=== PATIENT | female | born 1985 | race Caucasian/White ===

== ENCOUNTER 2018-01-04 17:32 | Emergency (ER) | payer OTHER ==
[2018-01-04 17:42] VITALS: BP 130/72
--- NOTE | 2018-01-04 17:47 | UC ---
Hand/Wrist HPI - HPI Summary HPI Summary: 32 yo WF presents with injury to left middle finger 1 month ago. She tells me that she was cooking and accidentally turned on the mixer switch with her hand in the bowl - her left middle finger was twisted. Since that time it has improved significantly, but is still painful on the radial aspect of the DIP and with valgus/varus force. She has been keeping her finger in a splint daily with no relief. - History Of Current Complaint Chief Complaint: UCUpperExtremity Stated Complaint: FINGER INJURY Hx Obtained From: Patient Hx Last Menstrual Period: 4 yrs Severity Initially: Mild Severity Currently: Mild Pain Intensity: 2 Pain Scale Used: 0-10 Numeric Character Of Pain: Throbbing Aggravating Factor(s): Movement, Abduction, Adduction Alleviating Factor(s): Nothing - Allergies/Home Medications Allergies/Adverse Reactions: Allergies Allergy/AdvReac Type Severity Reaction Status Date / Time No Known Allergies Allergy Verified 01/04/18 17:42 Home Medications: Home Medications BuPROPion XL* [Bupropion XL*] 300 mg PO DAILY 01/04/18 [History Confirmed ] Dextroamphetamine/Amphetamine [Amphetamine/Dextroampheta 5 mg] 3 tab PO DAILY [History Confirmed 01/04/18] Fluticas/Salmet 230/21 HFA(NF) [Advair HFA 23O/21 (NF)] 1 puff INH BID 01/04/18 [History Confirmed 01/04/18] PMH/Surg Hx/FS Hx/Imm Hx Previously Healthy: Yes Respiratory History: Asthma Psychological History: Anxiety, Depression - Surgical History Surgical History: Yes Surgery Procedure, Year, and Place: - Family History Known Family History: Positive: Other - brother has hx of asthmatic tendencies - Social History Occupation: Employed Full-time Lives: With Family Alcohol Use: Occasionally Substance Use Type: None Smoking Status (MU): Never Smoked Tobacco Household Exposure Type: Cigarettes Review of Systems Constitutional: Negative Skin: Negative Respiratory: Negative Cardiovascular: Negative Neurovascular: Negative Musculoskeletal: Other: - Pain left middle finger Neurological: Negative Psychological: Negative All Other Systems Reviewed And Are Negative: Yes Physical Exam - Summary Physical Exam Summary: GENERAL: NAD. WDWN. No pain distress. SKIN: No rashes, sores, ulcers, masses, lesions. NECK: Supple. Nontender. No lymphadenopathy. CHEST: CTAB. No r/r/w. No accessory muscle use. Breathing comfortably and in no distress. CV: RRR. Without m/r/g. Pulses intact radial and ulnar. MSK: Mild TTP over left middle finger PIP on the radial aspect. Increased pain with varus and valgus force. FROM. Strength 5/5 including maintenance tech strength. No edema or obvious bony deformities. NEURO: Alert. Sensations intact hand and all fingers. PSYCH: Age appropriate behavior. Triage Information Reviewed: Yes Vital Signs: Initial Vital Signs Temp 98.2 F 01/04/18 17:36 Pulse 91 01/04/18 17:36 Resp 16 01/04/18 17:36 BP 130/72 01/04/18 17:36 Pulse Ox 100 01/04/18 17:36 Hand/Wrist Course/Dx - Course Course Of Treatment: XR: IMPRESSION: No fracture of the left middle finger is noted. Soft tissue swelling at the proximal interphalangeal joint. Suspect possible tendon or ligament involvement - I will refer her to Orthopedics for further evaluation. - Differential Dx/Diagnosis Provider Diagnoses: Left middle finger pain Discharge - Discharge Plan Condition: Stable Disposition: HOME Referrals: Mimi Calloway MD [Primary Care Provider] - Kell Thompson MD [Medical Doctor] - As Soon As Possible Additional Instructions: If you develop a fever, shortness of breath, chest pain, new or worsening symptoms - please call your PCP or go to the ED. 1) Please schedule a follow up appointment with Dr. Thompson at the number below regarding your continued finger pain and swelling.
--- NOTE | 2018-01-04 18:57 | RAD ---
Indication: Left middle finger pain and swelling. 3 views of left middle finger demonstrates no fracture. No other bone or joint abnormality is noted. IMPRESSION: No fracture of the left middle finger is noted. Soft tissue swelling at the proximal interphalangeal joint.
== END 2018-01-04 19:05 | disposition home or self-care (01) ==
LOC: UCEAST 17:32
DX: M79.645 Pain in left finger(s) (principal); J45.909 Unspecified asthma, uncomplicated; F41.9 Anxiety disorder, unspecified; F32.9 Major depressive disorder, single episode, unspecified
CPT/HCPCS: 73140; 99211; G0463

== ENCOUNTER 2018-01-13 11:44 | Emergency (ER) | payer OTHER ==
--- OUTSIDE RECORDS SUMMARY | 2018-01-13 13:06 | XMS REPORT ---
:1985 External Reference #:[id number] Author Organization [facility] Address [address] [address] Phone [phone] Care Team Providers Name Role Phone Mimi Jauregui MD Primary Care Physician Unavailable Payers Type Date Identification Numbers Payment Provider Subscriber Commercial Policy Number: [id number] [employer] Chelly Lal PayID: [id number] [facility] [address] [place] [address] Problems Description No Information Social History Type Date Description Comments Lives With Family Occupation [employer] Former ETOH Use Rarely consumes alcohol Smoking Patient has never smoked Exercise Type/Frequency Exercises regularly Allergies, Adverse Reactions, Alerts Date Description Reaction Status Severity Comments 01/10/2018 NKDA active Medications Medication Date Status Form Strength Qnty SIG Indications Ordering Provider Bupropion HCL ER Active Unknown (XL) Adderall Active Unknown Vitamin D Active Unknown Multivitamin Adult Active Unknown Advair Diskus Active Unknown Albuterol Sulfate Active Unknown Vital Signs Date Vital Result Comment 01/10/2018 Height 65 inches 5'5" Weight 200.00 lb Heart Rate 73 /min BP Systolic 118 mmHg BP Diastolic 72 mmHg Respiratory Rate 14 /min Body Temperature 99.1 F Pain Level 2 BMI (Body Mass Index) 33.3 kg/m2 Results Description No Information Procedures Description No Information Plan of Care 01/10/2018 - Kell Thompson M.D.[id number] Sprain of interphalangeal joint of left middle finger, initFollow up:Follow up: As needed
[2018-01-13 13:15] VITALS: BP 112/69
--- NOTE | 2018-01-13 13:27 | UC ---
Skin Complaint HPI - HPI Summary HPI Summary: onset yesterday of swelling on right cheek, causing some swelling inferior to the right eye. No diplopia, no fever. Has decreased swelling since using ice on it. - History of Current Complaint Chief Complaint: UCRespiratory Time Seen by Provider: 01/13/18 13:16 Stated Complaint: PUFFY EYES/FACIAL SWELLING Hx Obtained From: Patient Hx Last Menstrual Period: unsure-has MIRENA IUD Onset/Duration: Gradual Onset, Lasting Days - 2 Timing: Constant Onset Severity: Mild Current Severity: Mild Pain Intensity: 0 Aggravating Factor(s): Touch Alleviating Factor(s): Cold Compresses Associated Signs & Symptoms: Positive: Negative - Allergy/Home Medications Allergies/Adverse Reactions: Allergies Allergy/AdvReac Type Severity Reaction Status Date / Time No Known Allergies Allergy Verified 01/13/18 13:10 Review of Systems Constitutional: Negative Skin: Negative Eyes: Negative - no diplopia, vision change, eye pain. ENT: Negative Respiratory: Negative Cardiovascular: Negative Gastrointestinal: Negative Genitourinary: Negative Motor: Negative Neurovascular: Negative Musculoskeletal: Negative Neurological: Negative Psychological: Negative Is Patient Immunocompromised?: No All Other Systems Reviewed And Are Negative: Yes PMH/Surg Hx/FS Hx/Imm Hx Respiratory History: Asthma Psychological History: Depression, Other - Attention deficit Other Psychological History: ADD - Surgical History Surgical History: Yes Surgery Procedure, Year, and Place: - Family History Known Family History: Positive: Diabetes - father, Other - brother has hx of asthmatic tendencies - Social History Occupation: Employed Full-time Lives: With Family Alcohol Use: Rare Substance Use Type: None Smoking Status (MU): Never Smoked Tobacco Household Exposure Type: Cigarettes Physical Exam Triage Information Reviewed: Yes Appearance: Well-Appearing, No Pain Distress, Obese Vital Signs: Initial Vital Signs Temp 99.3 F 01/13/18 13:11 Pulse 80 01/13/18 13:11 Resp 16 01/13/18 13:11 BP 112/69 01/13/18 13:11 Pulse Ox 100 01/13/18 13:11 Eyes: Positive: Conjunctiva Clear, Other: - minimal swelling, no erythema right cheek. PILAR, normal eom, no photophobia. Minimal right lower lid swelling. ENT: Positive: Pharynx normal Neck: Positive: Supple, Nontender, No Lymphadenopathy Respiratory: Positive: Lungs clear, Normal breath sounds Cardiovascular: Positive: RRR, No Murmur Neurological Exam: Normal Neurological: Positive: Alert, Muscle Tone Normal Psychological Exam: Normal Skin Exam: Other - to the right of the nose, about 2 cm inferior to the medial canthis of the right eye, has a mobile, firm nodule 2 x 1 cm. Minimally tender, no overlying skin erythema. Course/Dx - Course Course Of Treatment: doxycycline for suspected early infection of cyst, right cheek. - Differential Diagnoses - Skin Complaint Differential Diagnoses: Abscess, Cellulitis - Diagnoses Provider Diagnoses: early abscess of right cheek. Discharge - Discharge Plan Condition: Stable Disposition: HOME Prescriptions: DOXYcycline CAP(*) [DOXYcycline 100MG CAP(*)] 100 mg PO BID #14 cap Patient Education Materials: Abscess (ED) Referrals: Mimi Calloway MD [Primary Care Provider] - Epifanio Epps MD [Medical Doctor] - Additional Instructions: The concern is that you have an early forming abscess in the right cheek. Begin doxycycline for treatment, and monitor for increase in size. I am expecting that the size will decrease with treatment and no intervention will be needed, but if this begins to increase in size, you might need to have an incision and drainage. Because of the location, this would be done by a plastic surgeon, and I have given you Dr. Epps's information for contact. DO NOT TAKE YOUR MULTIVITAMIN DURING THE COURSE OF TREATMENT; IT CAN INTERFERE WITH THE EFFECTIVENSS OF THE ANTIBIOTIC.
== END 2018-01-13 13:49 | disposition home or self-care (01) ==
LOC: UCCORT 11:44
DX: L02.01 Cutaneous abscess of face (principal)
CPT/HCPCS: 99212; G0463

== ENCOUNTER 2018-03-28 10:29 | Emergency (ER) | payer OTHER ==
[2018-03-28 11:06] VITALS: BP 114/68
--- NOTE | 2018-03-28 11:14 | UC ---
Respiratory Complaint HPI - HPI Summary HPI Summary: 32 yo female presents with intermittently productive cough for 1 week. Feels it is getting worse. Has not taken anything OTC. Denies fever, chills, sore throat , SOB, chest pain, abdominal pain, n/v. - History of Current Complaint Chief Complaint: UCRespiratory Stated Complaint: BRONCHITIS Time Seen by Provider: 03/28/18 11:14 Hx Obtained From: Patient Hx Last Menstrual Period: mirena Onset/Duration: Gradual Onset Timing: Constant Severity Initially: Mild Severity Currently: Mild Pain Intensity: 3 Pain Scale Used: 0-10 Numeric Character: Cough: Productive - Allergies/Home Medications Allergies/Adverse Reactions: Allergies Allergy/AdvReac Type Severity Reaction Status Date / Time No Known Allergies Allergy Verified 03/28/18 10:55 Home Medications: Home Medications Clindamycin HCl 150 mg PO QID 03/28/18 [History Confirmed 03/28/18] PMH/Surg Hx/FS Hx/Imm Hx - Additional Past Medical History Additional PMH: ADHD Previously Healthy: Yes Respiratory History: Asthma Psychological History: Anxiety - Surgical History Surgical History: Yes Surgery Procedure, Year, and Place: . wisdom teeth removed - Family History Known Family History: Positive: Diabetes - father, Other - brother has hx of asthmatic tendencies - Social History Occupation: Employed Full-time Lives: With Family Alcohol Use: Rare Substance Use Type: None Smoking Status (MU): Never Smoked Tobacco Household Exposure Type: Cigarettes Review of Systems Constitutional: Negative Skin: Negative Eyes: Negative ENT: Negative Respiratory: Cough Cardiovascular: Negative Gastrointestinal: Negative Neurovascular: Negative Musculoskeletal: Negative Neurological: Negative Psychological: Negative All Other Systems Reviewed And Are Negative: Yes Physical Exam - Summary Physical Exam Summary: GENERAL: NAD. WDWN. No pain distress. SKIN: No rashes, sores, lesions, or open wounds. HEENT: Head: AT/NC Eyes: Conjunctiva clear without inflammation or discharge. Ears: Hearing grossly normal. TMs intact, no bulging, erythema, or edema. Nose: Nasal mucosa pink and moist. NTTP maxillary and frontal sinus. Throat: Posterior oropharynx without exudates, erythema, or tonsillar enlargement. Uvula midline. NECK: Supple. Nontender. No lymphadenopathy. CHEST: Mild wheezing throughout. No r/r. No accessory muscle use. Breathing comfortably and in no distress. CV: RRR. Without m/r/g. Pulses intact. Brisk cap refill. NEURO: Alert. CN II-XII grossly intact. PSYCH: Age appropriate behavior. Triage Information Reviewed: Yes Vital Signs: Initial Vital Signs Temp 98.8 F 03/28/18 11:00 Pulse 87 03/28/18 11:00 Resp 16 03/28/18 11:00 BP 114/68 03/28/18 11:00 Pulse Ox 98 03/28/18 11:00 Diagnostic Evaluation - Laboratory O2 Sat by Pulse Oximetry: 98 Respiratory Course/Dx - Course Course Of Treatment: Bronchitis - Differential Dx/Diagnosis Provider Diagnoses: Bronchitis Discharge - Sign-Out/Discharge Documenting (check all that apply): Discharge/Admit/Transfer - Discharge Plan Condition: Stable Disposition: HOME Prescriptions: Azithromycin TAB* [Zithromax TAB (Z-SHAHANA) 250 mg #6 tabs] 2 tab PO .TODAY, THEN 1 DAILY #1 shahana predniSONE TAB* [Deltasone TAB*] 40 mg PO DAILY #10 tab Patient Education Materials: Acute Bronchitis (ED) Referrals: Mimi Calloway MD [Primary Care Provider] - Additional Instructions: If you develop a fever, shortness of breath, chest pain, new or worsening symptoms - please call your PCP or go to the ED. - Billing Disposition and Condition Condition: STABLE Disposition: HOME
== END 2018-03-28 11:45 | disposition home or self-care (01) ==
LOC: UCEAST 10:29
DX: J45.909 Unspecified asthma, uncomplicated (principal); F90.9 Attention-deficit hyperactivity disorder, unspecified type; F41.9 Anxiety disorder, unspecified
CPT/HCPCS: 99212; G0463

== ENCOUNTER 2018-08-17 11:43 | Emergency (ER) | payer OTHER ==
[2018-08-17 12:49] VITALS: BP 106/62
--- NOTE | 2018-08-17 13:00 | UC ---
Complaint Female HPI - HPI Summary HPI Summary: Burning, frequency, urgency, hesitancy since yesterday. - History Of Current Complaint Chief Complaint: UCGU Stated Complaint: URINARY Time Seen by Provider: 08/17/18 12:46 Hx Obtained From: Patient Hx Last Menstrual Period: mirena ?: No Onset/Duration: Gradual Onset, Lasting Days Timing: Constant Severity Initially: Moderate Severity Currently: Mild Pain Intensity: 4 Character: Burning Aggravating Factor(s): Urination Alleviating Factor(s): Nothing Associated Signs And Symptoms: Negative: Fever, Back Pain, Vaginal Bleeding/ Discharge, Vaginal Discharge, Nausea, Vomiting(# Of Episodes =), Genital Swelling, Genital Blisters - Allergies/Home Medications Allergies/Adverse Reactions: Allergies Allergy/AdvReac Type Severity Reaction Status Date / Time No Known Allergies Allergy Verified 03/28/18 10:55 Home Medications: Home Medications Levonorgestrel (Iud) [Mirena IUD] 20 mcg IU ONCE 08/17/18 [History Confirmed ] PMH/Surg Hx/FS Hx/Imm Hx Previously Healthy: Yes - Surgical History Surgical History: Yes Surgery Procedure, Year, and Place: . wisdom teeth removed - Family History Known Family History: Positive: Diabetes - father, Other - brother has hx of asthmatic tendencies - Social History Alcohol Use: None Substance Use Type: None Smoking Status (MU): Never Smoked Tobacco Household Exposure Type: Cigarettes Review of Systems Genitourinary: Dysuria, Hematuria, Frequency, Urgency All Other Systems Reviewed And Are Negative: Yes Physical Exam Triage Information Reviewed: Yes Appearance: Well-Appearing, No Pain Distress, Well-Nourished Vital Signs: Initial Vital Signs Temp 98.2 F 08/17/18 12:43 Pulse 87 08/17/18 12:43 Resp 14 08/17/18 12:43 BP 106/62 08/17/18 12:43 Pulse Ox 100 08/17/18 12:43 Vital Signs Reviewed: Yes Eyes: Positive: Conjunctiva Clear ENT: Positive: Normal ENT inspection, Pharynx normal, Pharyngeal erythema Neck: Positive: Supple, Nontender, No Lymphadenopathy Respiratory: Positive: Lungs clear, Normal breath sounds, No respiratory distress, No accessory muscle use Cardiovascular: Positive: No Murmur Abdomen Description: Positive: No Organomegaly, Soft. Negative: CVA Tenderness (R), CVA Tenderness (L), Distended, Guarding Musculoskeletal: Positive: Strength Intact, ROM Intact, No Edema Neurological: Positive: Alert, Muscle Tone Normal. Negative: Fatigued Psychological: Positive: Age Appropriate Behavior Skin: Negative: rashes Complaint Female Dx - Differential Dx/Diagnosis Provider Diagnoses: uti uncomplicated. Discharge - Sign-Out/Discharge Documenting (check all that apply): Patient Departure All imaging exams completed and their final reports reviewed: No Studies - Discharge Plan Condition: Good Disposition: HOME Prescriptions: Nitrofurantoin Monohyd/M-Cryst [Macrobid 100 mg Capsule] 100 mg PO BID #14 cap Patient Education Materials: Urinary Tract Infection in Older Adults (ED) Referrals: Mimi Calloway MD [Primary Care Provider] - - Billing Disposition and Condition Condition: GOOD Disposition: Home
== END 2018-08-17 13:00 | disposition home or self-care (01) ==
LOC: UCCORT 11:43
DX: N39.0 Urinary tract infection, site not specified (principal)
CPT/HCPCS: 81003; 87086; 99212; G0463

== ENCOUNTER 2018-10-30 09:35 | Emergency (ER) | payer OTHER ==
[2018-10-30 09:59] VITALS: BP 114/75
--- NOTE | 2018-10-30 10:30 | UC ---
Respiratory Complaint HPI - HPI Summary HPI Summary: 33-year-old female presents with onset of fever, fatigue, body aches, nasal congestion, clear nasal drainage, sore throat, and a dry productive cough on . States she was exposed to multiple family members with similar symptoms during the holidays. Patient does have a history of some reactive airway disease with URIs states she is had some mild shortness of breath and wheezing for which she has been using her albuterol nebulizer with good relief. - History of Current Complaint Chief Complaint: UCGeneralIllness Stated Complaint: COUGH CONGESTION Time Seen by Provider: 10/30/18 10:27 Hx Obtained From: Patient Hx Last Menstrual Period: iud Pain Intensity: 4 - Allergies/Home Medications Allergies/Adverse Reactions: Allergies Allergy/AdvReac Type Severity Reaction Status Date / Time No Known Allergies Allergy Verified 10/30/18 10:00 PMH/Surg Hx/FS Hx/Imm Hx Previously Healthy: Yes Respiratory History: Asthma - Surgical History Surgical History: Yes Surgery Procedure, Year, and Place: . wisdom teeth removed - Family History Known Family History: Positive: Diabetes - father, Other - brother has hx of asthmatic tendencies - Social History Occupation: Employed Full-time Lives: With Family Alcohol Use: None Substance Use Type: None Smoking Status (MU): Never Smoked Tobacco Household Exposure Type: Cigarettes Review of Systems All Other Systems Reviewed And Are Negative: Yes Constitutional: Positive: Fever, Chills, Fatigue Skin: Negative: Rash Eyes: Negative: Blurred Vision, Diplopia, Drainage, Eye Redness, Photophobia ENT: Positive: Sore Throat, Nasal Discharge, Sinus Congestion. Negative: Ear Ache, Sinus Pain/Tenderness Respiratory: Positive: Shortness Of Breath, Cough Cardiovascular: Negative: Palpitations, Chest Pain Gastrointestinal: Negative: Abdominal Pain, Vomiting, Diarrhea, Nausea Genitourinary: Positive: Negative Musculoskeletal: Positive: Negative Neurological: Positive: Negative Is Patient Immunocompromised?: No Physical Exam - Summary Physical Exam Summary: GENERAL APPEARANCE: Well developed, well nourished, alert and cooperative, and appears to be in no acute distress. EYES: Conjunctiva clear. No drainage. Vision is grossly intact. EARS: External auditory canals and tympanic membranes clear, hearing grossly intact. NOSE: Moderate nasal congestion with mucosal erythema and edema. THROAT: Mild pharyngeal erythema without tonsilar inflammation, swelling, exudate, or lesions. Oral cavity normal. Teeth and gingiva in good general condition. NECK: Neck supple, non-tender without lymphadenopathy. CARDIAC: Normal S1 and S2. No S3, S4 or murmurs. Rhythm is regular. There is no peripheral edema, cyanosis or pallor. Extremities are warm and well perfused. Capillary refill is less than 2 seconds. LUNGS: Few intermittent scattered wheezes noted without rales, rhonchi, or diminished breath sounds. ABDOMEN: Positive bowel sounds. Soft, nondistended, nontender. No guarding or rebound. No masses or hepatosplenomegally. MUSKULOSKELETAL: ROM intact to all extremities. No joint erythema or tenderness. Normal muscular development. Normal gait. SKIN: Skin normal color, texture and turgor with no lesions or eruptions. Triage Information Reviewed: Yes Vital Signs: Initial Vital Signs Temp 97.5 F 10/30/18 09:57 Pulse 80 10/30/18 09:57 Resp 17 10/30/18 09:57 BP 114/75 10/30/18 09:57 Pulse Ox 100 10/30/18 09:57 Vital Signs Reviewed: Yes Diagnostic Evaluation - Laboratory O2 Sat by Pulse Oximetry: 100 Diagnostic Studies Comment: Rapid influenza positive for influenza A Respiratory Course/Dx - Course Course Of Treatment: 33-year-old female presents with onset of fever, fatigue, body aches, nasal congestion, clear nasal drainage, sore throat, and a dry productive cough on 10/27/2018. States she was exposed to multiple family members with similar symptoms during the holidays. Patient does have a history of some reactive airway disease with URIs states she is had some mild shortness of breath and wheezing for which she has been using her albuterol nebulizer with good relief. Afebrile. Vital signs stable. Exam revealed moderate nasal congestion with mucosal erythema and edema, mild pharyngeal erythema, and a loose nonproductive cough. She had a few scattered intermittent wheezes otherwise breath sounds were normal. Remainder of exam was unremarkable. Rapid flu was positive for influenza A. I'm recommending symptomatic treatment we will provide her with a prescription for additional albuterol nebulizer solution as she is states she is running out. She is to follow up with the primary care provider in 7 days if symptoms do not improve. Warning symptoms were reviewed with patient. She verbalizes understanding and agrees with plan of care. - Differential Dx/Diagnosis Differential Diagnosis/HQI/PQRI: Asthma, Bronchitis, Influenza, Lower Resp Infection, Sinusitis Provider Diagnosis: Influenza A Discharge - Sign-Out/Discharge Documenting (check all that apply): Patient Departure All imaging exams completed and their final reports reviewed: No Studies - Discharge Plan Condition: Stable Disposition: HOME Prescriptions: Albuterol 2.5MG/3ML (0.083%)* [Ventolin 2.5 MG/3 ML NEB.TATYANA*] 2.5 mg INH Q4H PRN #1 box PRN Reason: Sob/Wheezing Fluticasone NASAL SPRAY 50MCG* [Flonase NASAL SPRAY 50MCG*] 2 spray BOTH NARES DAILY #1 btl Referrals: Mimi Calloway MD [Primary Care Provider] - 7 Days (If symptoms do not improve. ) Additional Instructions: The flu test performed in the clinic today was positive for influenza A. Influenza is a viral infection and does not respond to antibiotics. Treatment is limited to the treatment of symptoms. Influenza typically runs its course in 7-10 days. Drink plenty of fluids to avoid dehydration especially if you are running any fever. Use a saline rinse kit such as Neti Pot or NeilMed at least twice a day to help thin secretions and promote drainage of the sinuses. Use fluticasone (Flonase) nasal spray 2 sprays each nostril once daily. Continue to use your albuterol inhaler or nebulizer as needed for shortness of breath or wheezing. Take over the counter acetaminophen (Tylenol) or ibuprofen (Advil, Motrin) according to directions as needed for pain or fever. Use salt water gargles several times a day if you have a sore throat. You may also use Chloraseptic spray or Cepacol lonzenges according to directions which contain a numbing medication and can provide some temporary relief from your sore throat. Follow up with your primary care provider in 7 days if symptoms persist. Seek immediate medical attention in the emergency room if you have fever greater than 100.5 F despite taking acetaminophen or ibuprofen, have chest pain , difficulty breathing, persistent wheezing despite using albuterol inhaler/ nebulizer, or have any worsening of symptoms. - Billing Disposition and Condition Condition: STABLE Disposition: Home
== END 2018-10-30 11:07 | disposition home or self-care (01) ==
LOC: UCEAST 09:35
DX: J09.X2 Influenza due to identified novel influenza A virus with other respiratory manifestations (principal); J45.909 Unspecified asthma, uncomplicated
CPT/HCPCS: 99212; G0463

== ENCOUNTER 2019-01-24 09:51 | Emergency (ER) | payer OTHER ==
[2019-01-24 10:16] VITALS: BP 110/66
--- NOTE | 2019-01-24 10:54 | UC ---
Neck Pain HPI - HPI Summary HPI Summary: neck pain x 4 days, pain is 4 out of 10 achy, pain radiation to left side of her chest and left arm worse with neck movement, better with res, + numbness of left hand / fingers no n/v/d/c, no chest pain , no sob , no cough, no fever or chills - History of Current Complaint Chief Complaint: UCRespiratory Stated Complaint: SOB Time Seen by Provider: 01/24/19 10:01 Hx Obtained From: Patient Hx Last Menstrual Period: unknown ?: No Onset/Duration Of Injury/Symptoms: Days - 4 Timing: Constant Onset/Duration: Gradual Onset, Still Present Severity: Moderate Pain Intensity: 0 Location: Discrete At: - neck Character: Aching Aggravating Factors: Position, Movement Alleviating Factors: Nothing Associated Signs & Symptoms: Negative: Swelling, Redness, Bruising, Fever, Nuchal Rigity, Weakness, Headache, Paresthesia - Allergies/Home Medications Allergies/Adverse Reactions: Allergies Allergy/AdvReac Type Severity Reaction Status Date / Time No Known Allergies Allergy Verified 01/24/19 10:15 Home Medications: Home Medications Albuterol HFA INHALER* [Ventolin HFA Inhaler*] 2 puff INH Q4H PRN 01/24/19 [ History Confirmed 01/24/19] Cholecalciferol TAB* [Vitamin D TAB*] 5,000 units PO DAILY 01/24/19 [History Confirmed 01/24/19] Cyanocobalamin TAB* [Vitamin B12 TAB*] 3,000 mcg PO DAILY 01/24/19 [History Confirmed 01/24/19] PMH/Surg Hx/FS Hx/Imm Hx Psychological History: Depression - Surgical History Surgical History: Yes Surgery Procedure, Year, and Place: . wisdom teeth removed - Family History Known Family History: Positive: Diabetes - father, Other - brother has hx of asthmatic tendencies - Social History Alcohol Use: None Substance Use Type: None Smoking Status (MU): Never Smoked Tobacco Household Exposure Type: Cigarettes Review of Systems All Other Systems Reviewed And Are Negative: Yes Constitutional: Positive: Negative Skin: Positive: Negative Eyes: Positive: Negative ENT: Positive: Negative Respiratory: Positive: Negative Cardiovascular: Positive: Negative Is Patient Immunocompromised?: No Physical Exam Triage Information Reviewed: Yes Appearance: Well-Appearing, No Pain Distress, Well-Nourished Vital Signs: Initial Vital Signs Temp 97.8 F 01/24/19 10:03 Pulse 79 01/24/19 10:03 Resp 16 01/24/19 10:03 BP 110/66 01/24/19 10:03 Pulse Ox 100 01/24/19 10:03 Vital Signs Reviewed: Yes Eye Exam: Normal Eyes: Positive: Conjunctiva Clear ENT: Positive: Normal ENT inspection, Hearing grossly normal, Pharynx normal Neck exam: Normal Neck: Positive: Supple, Nontender, No Lymphadenopathy Respiratory: Positive: Chest non-tender, Lungs clear, Normal breath sounds Cardiovascular: Positive: RRR, No Murmur, Pulses Normal Musculoskeletal Exam: Normal Musculoskeletal: Positive: Strength Intact, ROM Intact, No Edema Skin Exam: Normal Diagnostics - EKG Cardiac Rate: NL Cardiac Rhythm: Sinus: Normal Ectopy: None ST Segment: Normal Neck Pain Course/Dx - Differential Dx/Diagnosis Provider Diagnosis: Thoracic outlet syndrome Discharge - Sign-Out/Discharge Documenting (check all that apply): Patient Departure All imaging exams completed and their final reports reviewed: No Studies - Discharge Plan Condition: Stable Disposition: HOME Patient Education Materials: Thoracic Outlet Syndrome (ED) Referrals: Mimi Calloway MD [Primary Care Provider] - 7 Days - Billing Disposition and Condition Condition: STABLE Disposition: Home
== END 2019-01-24 10:50 | disposition home or self-care (01) ==
LOC: UCCORT 09:51
DX: G54.0 Brachial plexus disorders (principal); R20.0 Anesthesia of skin
CPT/HCPCS: 93005; 99211; G0463